=== PATIENT | male | born 1965 | race Caucasian/White ===

== ENCOUNTER 2018-06-04 18:30 | Inpatient (IN) | payer MEDICAID ==
[~2018-06-04] VITALS: Ht 175.3 cm; Wt 71.7 kg
[~2018-06-04 18:30] MED LIST: CEPH250C16
[2018-06-04 19:07] VITALS: BP 146/78
--- NOTE | 2018-06-04 19:07 | NUR ---
PT AMBULATORY TO ER LOBBY W/ STEADY GAIT IN STABLE CONDITION.
[2018-06-04 21:56] LABS: BASOPHILS % (AUTO) 0.4 % (0.0-2.0); EOSINOPHILS # (AUTO) 0.3 K/uL (0-0.4); EOSINOPHILS % (AUTO) 3.6 % (0.0-4.0); HEMOGLOBIN 11.8 g/dL (12.0-18.0); LYMPHOCYTES # (AUTO) 1.6 K/uL (2.0-11.5); LYMPHOCYTES % (AUTO) 19.4 % (20.5-51.1); MEAN CORPUSCULAR HEMOGLOBIN 35 pg (27-31); MEAN CORPUSCULAR HGB CONC 34 g/dL (33-37); MONOCYTES # (AUTO) 0.7 K/uL (0.8-1.0); MONOCYTES % (AUTO) 9.1 % (1.7-9.3); NEUTROPHILS # (AUTO) 5.5 K/uL (1.8-7.7); NEUTROPHILS % (AUTO) 67.5 % (42.2-75.2); PLATELET COUNT (AUTO) 84 K/uL (140-450); RED BLOOD CELL COUNT(AUTO) 3.37 MIL/uL (4.20-6.10); RED CELL DISTRIBUTION WIDTH 15.5 % (11.6-13.7); WHITE BLOOD COUNT (AUTO) 8.1 K/uL (4.8-10.8)
[2018-06-04 22:19] LABS: ANION GAP 10.9 (8-16); CARBON DIOXIDE 24.6 mmol/L (21-32); CREATININE 0.9 mg/dL (0.7-1.3); POTASSIUM 4.5 mmol/L (3.5-5.1)
[2018-06-04 22:25] LABS: TOTAL BILIRUBIN 3.4 mg/dL (0.0-1.0)
--- NOTE | 2018-06-04 22:29 | NUR ---
PT AMBULATED TO BED 7
--- NOTE | 2018-06-04 22:38 | NUR ---
PT PRESENTS TO ED WITH C/O ABD PAIN- DENIES N/V/D. OBVIOUS HERNIA NOTED TO UMBILICAL AREA PER PT IT HAS BEEN THERE FOR 20 YEARS WITH CONTINUED GROWTH. ABD IS ROUND DENIES PAIN UPON PALPATION. PT PLACED INTO BED, PENDING MD TABARES. PMH--LIVER CHIROSIS, HERNIA
[2018-06-04 23:44] LABS: APPEARANCE,URINE CLEAR (CLEAR); COLOR,URINE YELLOW (YELLOW)
[2018-06-04 23:45] LABS: BILIRUBIN,URINE NEGATIVE (NEGATIVE); BLOOD, URINE 3+ (NEGATIVE); UGLUCOSE NEGATIVE (NEGATIVE)
[2018-06-04 23:46] LABS: LEUKOCYTE ESTERASE ,URINE NEGATIVE (NEGATIVE); NITRITE, URINE NEGATIVE (NEGATIVE); RBC,URINE TOO NUMEROUS TO COUN /HPF (0-5); WBC,URINE 0-5 (RARE) /HPF (0-5)
[2018-06-05] MEDS ORDERED: NACL 0.9% 1,000 ML IV ONE (00:55)
[2018-06-05] MEDS ORDERED: MORPHINE SULFATE 4 MG/ML SYR IVP ONE (00:55)
[2018-06-05] MEDS ORDERED: NACL 0.9% 1,000 ML IV SCH (01:14)
[2018-06-05] MEDS ORDERED: MORPHINE SULFATE 2 MG/ML SYR IVP PRN (01:15)
[2018-06-05] MEDS ORDERED: HYDROcodone/APAP 5/325 MG 1 TAB TAB PO PRN (01:15)
[2018-06-05] MEDS ORDERED: ACETAMINOPHEN 325 MG TAB PO PRN (01:15)
[2018-06-05] MEDS ORDERED: DOCUSATE SODIUM 100 MG GELCAP PO PRN (01:15)
[2018-06-05] MEDS ORDERED: MORPHINE SULFATE 4 MG/ML SYR ONE (01:35)
[2018-06-05 01:41] LABS: PROTHROMBIN TIME 13.4 secs (10.8-13.4)
[2018-06-05 01:44] LABS: BARBITURATE, URINE NEG. ng/ml (NEG <=200); BENZODIAZEPINE, URINE NEG. ng/mL (NEG <=200); CANNABINOID, URINE NEG. ng/mL (NEG <=50); COCAINE, URINE NEG. ng/mL (NEG <=300); OPIATE, URINE NEG. ng/mL (NEG <=2000); PHENCYCLIDINE SCREEN,URINE NEG. ng/mL (NEG <=25)
--- NOTE | 2018-06-05 01:55 | NUR ---
RECEIVED FROM ER PER CARMINA AWAKE AND ALERT. NOSE BLEEDING A LITTLE BIT FROM NGT INSERTION. NO NGT IN PLACE RT BLEEDING. ACCOMPANIED BY DAUGHTER JOSS . IVF SITE TO LAC # 20. CARE PLANS FOR THE NIGHT DISCUSSED WITH THEM. CALL LIGHT WITH IN REACH. ORIENTED TO ROOM AND BED. RAPID RESPONSE DISCUSSED WITH THEM. ON ROOM AIR 100 %. SKIN INTACT. ROM X 4.
--- NOTE | 2018-06-05 01:55 | NUR ---
Patient will be admitted to care of DR GIVENS. Admited to MED/SURG. Will go to room 111-A. Belongings list completed. Report to SHANE POLANCO.
[2018-06-05 02:04] LABS: AMYLASE 77 U/L (25-115); CHOL/HDL RATIO 3.2 (1-4.5); HDL CHOLESTEROL 65 mg/dL (40-60); LDL (CALC) 128 mg/dL (60-100); MAGNESIUM 1.9 mg/dL (1.8-2.4); PHOSPHORUS 4.2 mg/dL (2.5-4.9); TRIGLYCERIDES 80 mg/dL (30-150)
[2018-06-05] MEDS: DEXT 5% / NACL 0.45% 1,000 ML IV SCH ×3 (02:56→19:09)
[2018-06-05] MEDS ORDERED: HYDR25CA1 PO (03:03)
[2018-06-05] MEDS ORDERED: SPIR25TA PO (03:03)
[2018-06-05] MEDS ORDERED: TRAM50TA1 PO (03:03)
[2018-06-05] MEDS ORDERED: FURO-570 PO (03:03)
[2018-06-05] MEDS ORDERED: LACT10SO1 PO (03:03)
[2018-06-05] MEDS ORDERED: cefTRIAXone 1,000 MG VIAL ONE (03:07)
[2018-06-05] MEDS ORDERED: SENN-74 PO (03:13)
[2018-06-05 03:20] VITALS: BP 139/80
[2018-06-05] MEDS: ONDANSETRON 4 MG/2 ML VIAL IM/IVP PRN ×2 (03:24→19:06)
--- NOTE | 2018-06-05 03:26 | NUR ---
MEDICATED WITH ZOFRAN IVP RT NAUSEATED AND FEELS LIKE VOMITING. WENT BACK TO SLEEP AFTER MEDICATION. CALL LIGHT WITH IN REACH.
--- NOTE | 2018-06-05 07:24 | NUR ---
ENDORSED TO THE NEXT RN FOR CONTINUITY OF CARE. NO COMPLAINTS DONE. SLEEPING. WAKES UP EASILY WHEN NAME CALLED.
--- NOTE | 2018-06-05 07:25 | NUR ---
RECEIVED BEDSIDE REPORT FROM DESIGN TECHNOLOGY PROFESSOR NURSE. PATIENT IS SLEEPING. NO SIGNS OF DISTRESS ON RA. SKIN IS INTACT. PATIENT IS AMBULATORY. GAIT IS STEADY. PATIENT IS CONTINENT. NPO SIGNS POSTED FOR SBO. MED SURGE PATIENT. L AC 20G INFUSING D5 1/2NS AT 100. CLEAN, DRY AND INTACT. BED IN LOW POSITION. CALL LIGHT WITHIN REACH. WILL CONTINUE TO MONITOR THE PATIENT
--- NOTE | 2018-06-05 07:57 | NUR ---
PATIENT HAS BEEN SCREENED AND CATEGORIZED MODERATE NUTRITION RISK. PATIENT WILL BE SEEN WITHIN 3-5 DAYS OF ADMISSION. 06/07/18RE[address]
[2018-06-05 08:00] VITALS: BP 123/74
[2018-06-05] MEDS ORDERED: hydrOXYzine PAMOATE 25 MG CAP PO SCH (09:00)
--- NOTE | 2018-06-05 09:25 | NUR ---
ATTEMPTED NGT. PATIENT VOMITED SOME BLOOD AND BLEEDING OCCURRED FROM NOSTRIL. DR ARCE SAID I CAN STOP AND DR LO WILL DO IT LATER.
[2018-06-05] MEDS: FUROSEMIDE 40 MG TAB PO SCH (11:04)
[2018-06-05] MEDS: SENNA 8.6 MG TAB PO SCH ×2 (11:04→20:50)
[2018-06-05] MEDS: LACTOBACILLUS RHAMNOSUS GG 1 EACH CAP PO SCH (11:04)
[2018-06-05] MEDS: SPIRONOLACTONE 25 MG TAB PO SCH ×2 (11:05→20:51)
[2018-06-05] MEDS: LACTULOSE 20 GM/30 ML UDC PO SCH ×2 (11:15→20:50)
[2018-06-05] MEDS ORDERED: hydrOXYzine HCL 25 MG TAB PO SCH (11:30)
--- NOTE | 2018-06-05 11:30 | NUR ---
ADMINISTERED MEDS. DR FRANCIS SAID OK TO GIVE LACTULOSE AND SENNA. ADMINISTERED ALL OTHER MEDS. PATIENT TOOK A FEW SIPS OF WATER, PATIENT TOLERATED WELL. CHRISTIE BOWERS. IV IS CLEAN, DRY AND INTACT. WILL CONTINUE TO MONITOR THE PATIENT
--- NOTE | 2018-06-05 12:29 | NUR ---
PATIENT IS SLEEPING. NO SIGNS OF DISTRESS. WILL CONTINUE TO MONITOR. DAUGHTER AT BEDSIDE.
--- NOTE | 2018-06-05 13:46 | NUR ---
patient ambulated to the restroom, gait steady. daughter at bedside. will continue to monitor the patient
--- NOTE | 2018-06-05 14:19 | NUR ---
administered new bag on fluids, D5 1/2NS AT 100. IV IS CLEAN, DRY AND INTACT
--- NOTE | 2018-06-05 15:02 | NUR ---
PATIENT IS SLEEPING. NO SIGNS OF DISTRESS. WILL CONTINUE TO MONITOR
--- NOTE | 2018-06-05 15:29 | NUR ---
PATIENT PICKED UP BY OR NURSE. PATIENT LEFT IN STABLE CONDITION
[2018-06-05] MEDS ORDERED: DESFLURANE 240 ML BTL INH ONE (16:24)
[2018-06-05] MEDS ORDERED: ROCURONIUM 50 MG/5 ML VIAL IV ONE (16:24)
[2018-06-05] MEDS ORDERED: ONDANSETRON 4 MG/2 ML VIAL ONE (16:24)
[2018-06-05] MEDS ORDERED: DEXAMETHASONE 4 MG/ML VIAL ONE (16:24)
[2018-06-05] MEDS ORDERED: SUCCINYLCHOLINE CHLORIDE 200 MG/10 ML VIAL IVP ONE (16:24)
[2018-06-05] MEDS ORDERED: PROPOFOL 200 MG/20 ML VIAL IV ONE (16:24)
[2018-06-05] MEDS ORDERED: ceFAZolin 1,000 MG VIAL ONE (16:29)
[2018-06-05] MEDS ORDERED: fentaNYL 0.05 MG/ML VIAL ONE (16:32)
[2018-06-05] MEDS: BUPIVACAINE-MPF 0.25% 30 ML VIAL INJ ONE ×2 (16:58→18:23)
--- NOTE | 2018-06-05 18:00 | NUR ---
patient going to icu, dr john is aware. dr joyce wants patient in icu for close monitoring d/t surgical incision being deep and the probability of patient being in severe pain. gave bedside report to icu nurse. patient endorsed. all belongings sent w family.
--- NOTE | 2018-06-05 18:30 | NUR ---
PT RECEIVED FROM OR S/P HERNIA REPAIR WITH MESH VIA BED. PLACED PT ON MONITOR. HR 85, BP 134/88, RR 14 SPO2 97%. PT A/O X4. ABLE TO MAKE NEEDS KNOWN. IN ROOM AIR SATURATING 97%. DRESSING DRY AND INTACT. ON PEDRO DRAINAGE. LUNGS COARSE. ABDOMEN FIRM, TENDER. ACTIVE BOWEL SOUND. LEFT 20 G. SALINE LOCK. FLUSHED, INTACT LINE. RIGHT FOREARM 18G. INTACT LINE. FLUSHED. ON HEBERT CATH DRAINING CLEAR URINE IN BAG. DENIES PAIN, NAUSEA AT THIS TIME. KEPT HOB ELEVATED. BED IN LOW POSITION LOCKED. WILL CONTINUE TO MONITOR.
[2018-06-05 18:35] VITALS: BP 134/88
[2018-06-05] MEDS ORDERED: ONDANSETRON 4 MG/2 ML VIAL IVP PRN (18:40)
[2018-06-05] MEDS ORDERED: HYDROmorphone 1 MG/ML AMP IVP PRN (18:40)
[2018-06-05 18:50] VITALS: BP 137/87
[2018-06-05 19:05] VITALS: BP 133/86
--- NOTE | 2018-06-05 19:11 | NUR ---
Pt. c/o nausea and pain at surgical site. Administered medicines as per ordered.
--- NOTE | 2018-06-05 19:15 | NUR ---
RECEIVED REPORT FROM AM SHIFT. PT A0 X 4. FOLLOWS SIMPLE COMMANDS. ABLE TO MAKE NEEDS KNOWN. ON ROOM AIR. LUNG SOUNDS CLEAR BILAT. SR ON MONITOR. PT NPO. S/P SBO SURGERY. SHYANNE AND ABD DRESSING IN PLACE. PEDRO DRAIN TO ABD NOTED. F/C IN PLACE. CLEAR YELLOW URINE. IV SITE TO L AC 20 G AND R FA 18 G. IV SITE PATENT. BED IN LOWEST POSITION. CALL LIGHT WITHIN REACH. FAMILY AT BEDSIDE. WILL CONTINUE TO MONITOR.
--- NOTE | 2018-06-05 19:30 | NUR ---
REPORT GIVEN TO SEED AND FERTILIZER SPECIALIST RN FOR CONTINUITY OF CARE.
--- NOTE | 2018-06-05 20:00 | NUR ---
ADMINISTERED 325 ML 1 UNIT PLATELETS AT THIS TIME.
--- NOTE | 2018-06-05 20:15 | NUR ---
PLATELETS INFUSING WELL. NO ADVERSE REACTIONS NOTED.
--- NOTE | 2018-06-05 20:15 | NUR ---
PT REFUSED NGT PLACEMENT. NO SIGNS OF ACUTE DISTRESS AT THIS TIME.
[2018-06-05] MEDS: hydrOXYzine HCL 25 MG TAB PO SCH (20:50)
--- NOTE | 2018-06-05 20:51 | NUR ---
PT STILL REFUSED NGT PLACEMENT. DR FOSTER MADE AWARE. OK TO START MEDS IN AM. WILL CONTINUE TO MONITOR.
--- NOTE | 2018-06-05 21:25 | NUR ---
RT AT BEDSIDE AT THIS TIME.
--- NOTE | 2018-06-05 21:30 | NUR ---
PATIENT SLEEPING, INCENTIVE SPIROMETER LEFT AT BEDSIDE
[2018-06-05 22:00] VITALS: BP 109/69
--- NOTE | 2018-06-05 22:33 | NUR ---
PLATELET INFUSION COMPLETE. NO ADVERSE REACTIONS NOTED.
--- NOTE | 2018-06-05 22:49 | NUR ---
PT REFUSES REPOSITIONING ASSISTANCE. ENCOURAGED SELF REPOSITIONING. EXPLAINED RISK VS. BENEFITS. PT STILL REFUSED.
[2018-06-06] VITALS (7 sets, daily range): BP systolic 99–125; BP diastolic 59–77
--- NOTE | 2018-06-06 00:10 | NUR ---
PT RESTING QUIETLY AT THIS TIME. NO SIGNS OF ACUTE DISTRESS NOTED.
--- NOTE | 2018-06-06 03:00 | NUR ---
STILL AWAKE, CONVERSING WITH PATIENT IN BED-A. ADVISED TO GO TO SLEEP.
--- NOTE | 2018-06-06 04:10 | NUR ---
ABD DRESSING CLEAN AND DRY. PEDRO DRAIN OUTPUT 30ML SANGUINOUS FLUID NOTED.
--- NOTE | 2018-06-06 04:19 | NUR ---
PT REFUSES REPOSITIONING. REQUEST TO SLEEP AND NOT BE BOTHERED. EXPLAINED RISK VS. BENEFITS. PT STILL REFUSED. WILL CONTINUE TO MONITOR.
--- NOTE | 2018-06-06 05:10 | NUR ---
RT AT BEDSIDE AT THIS TIME. PT WAS ABLE TO SUCCESSFULLY USE INCENTIVE SPIROMETER. ENCOURAGED TO USE WHEN AWAKE
--- NOTE | 2018-06-06 05:15 | NUR ---
LAB AT BEDSIDE AT THIS TIME FOR AM BLOOD DRAWS
[2018-06-06 06:02] LABS: CREATININE 0.9 mg/dL (0.7-1.3)
[2018-06-06 06:03] LABS: BASOPHILS % (AUTO) 0.2 % (0.0-2.0); EOSINOPHILS % (AUTO) 0.2 % (0.0-4.0); HEMATOCRIT 30.9 % (36-52); HEMOGLOBIN 10.7 g/dL (12.0-18.0); LYMPHOCYTES # (AUTO) 0.7 K/uL (2.0-11.5); LYMPHOCYTES % (AUTO) 11.3 % (20.5-51.1); MEAN CORPUSCULAR HEMOGLOBIN 35 pg (27-31); MEAN CORPUSCULAR HGB CONC 34 g/dL (33-37); MEAN CORPUSCULAR VOLUME 102.3 fL (80-94); MONOCYTES # (AUTO) 0.3 K/uL (0.8-1.0); MONOCYTES % (AUTO) 4.3 % (1.7-9.3); NEUTROPHILS # (AUTO) 5.5 K/uL (1.8-7.7); PLATELET COUNT (AUTO) 84 K/uL (140-450); RED BLOOD CELL COUNT(AUTO) 3.02 MIL/uL (4.20-6.10); RED CELL DISTRIBUTION WIDTH 14.8 % (11.6-13.7); WHITE BLOOD COUNT (AUTO) 6.5 K/uL (4.8-10.8)
[2018-06-06 06:07] LABS: MAGNESIUM 1.4 mg/dL (1.8-2.4); PHOSPHORUS 4.3 mg/dL (2.5-4.9)
--- NOTE | 2018-06-06 06:08 | NUR ---
PT REFUSED AM CARE. EXPLAINED RISK VS. BENEFITS. STILL REFUSED.
[2018-06-06 06:16] LABS: ANION GAP 9.1 (8-16); CARBON DIOXIDE 24.1 mmol/L (21-32); POTASSIUM 4.2 mmol/L (3.5-5.1)
[2018-06-06 06:21] LABS: T4 (THYROXINE) 6.6 ug/dL (4.5-12.0)
[2018-06-06] MEDS ORDERED: HYDROcodone/APAP 7.5/325 MG 1 TAB PO PRN (06:55)
[2018-06-06] MEDS ORDERED: SIMETHICONE 80 MG TAB.CHEW PO PRN (06:55)
--- NOTE | 2018-06-06 07:17 | NUR ---
ENDORSED CARE TO INCOMING SHIFT FOR CONTINUITY OF CARE. NO SIGNS OF ACUTE DISTRESS AT THIS TIME. BED IN LOWEST POSITION. CALL LIGHT WITHIN REACH.
[2018-06-06] MEDS ORDERED: PROBIOTIC SCREEN 1 EA MISC MC PRN (07:20)
--- NOTE | 2018-06-06 08:00 | NUR ---
PATIENT AWAKE,ALERT, ORIENTED TO PERSON, TIME, PLACE SITUATION. ON ROOM AIR SO2 97%, SINUS RHYTHM ON MONITOR HR 80 BPM, SOFT ABDOMEN, NORMAL BOWEL SOUNDS, POST SURGICAL ABDOMINAL WOUND WITH CLEAN DRY INTACT DRESSING 1 PEDRO TO BULB SUCTION MINIMAL BLOODY OUTPUT NOTED, WITH HEBERT CATHETER, WITH 2 PERIPHERAL LINES: RIGHT FOREARM GAUGE 18 WITH D5HALF SALINE INFUSING 100ML/HR., LEFT ANTECUBITAL GAUGE 20 SALINE LOCKED-SITES ASYMPTOMATIC, NO OTHER WOUNDS. CALL SMYTH WITHIN REACH
--- NOTE | 2018-06-06 08:05 | NUR ---
PATIENT ABLE TO EAT BREAKFAST INDEPENDENTLY, FINISHED 100% OF MEAL SERVED
--- NOTE | 2018-06-06 08:42 | NUR ---
DR JONES MADE AWARE OF PATIENT'S MAG 1.4 AND NA 134 LEVELS. WILL FOLLOW UP WITH ORDERS.
[2018-06-06] MEDS: LACTOBACILLUS RHAMNOSUS GG 1 EACH CAP PO SCH (09:05)
[2018-06-06] MEDS: hydrOXYzine HCL 25 MG TAB PO SCH ×2 (09:06→20:32)
[2018-06-06] MEDS: SPIRONOLACTONE 25 MG TAB PO SCH ×2 (09:06→20:31)
[2018-06-06] MEDS: DOCUSATE SODIUM 100 MG GELCAP PO SCH ×2 (09:06→20:30)
[2018-06-06] MEDS: FUROSEMIDE 40 MG TAB PO SCH (09:07)
[2018-06-06] MEDS: SENNA 8.6 MG TAB PO SCH ×2 (09:07→20:31)
[2018-06-06] MEDS: LACTULOSE 20 GM/30 ML UDC PO SCH ×2 (09:33→20:33)
[2018-06-06] MEDS ORDERED: MAG SULF 2000 MG/WATER PREMIX 100 ML IV SCH (10:00)
--- NOTE | 2018-06-06 11:22 | NUR ---
DR. FRANCIS AWARE OF PATIENT'S PLATELET LEVEL, SODIUM TODAY. RN RECOMMENDED TO CHANGE CURRENT IV FLUID WHICH IS D5 HALF NORMAL SALINE
--- NOTE | 2018-06-06 11:30 | NUR ---
PATIENT ATE HIS LUNCH INDEPENDENTLY, FINISHED 75% OF MEAL TRAY SERVED. HEAD OF BED UP 45 DEGREES AT THIS TIME
[2018-06-06] MEDS: NACL 0.9% 1,000 ML IV SCH (13:18)
--- NOTE | 2018-06-06 16:00 | NUR ---
AFTER VERIFYING ORDER AND INFORMING PATIENT. HEBERT CATHETER WAS REMOVED PER PROTOCOL WITHOUT INCIDENCE. PATIENT HAD A TOTAL OF 1800 URINE OUTPUT THIS SHIFT
--- NOTE | 2018-06-06 17:00 | NUR ---
PATIENT TRANSFERRED TO TELEMETRY VIA WHEELCHAIR. PATIENT ALERT ORIENTED NO COMPLAINTS OF PAIN, SINUS RHYTHM, LATEST BP 125/77. ABDOMINAL DRESSING CLEAN DRY AND INTACT PEDRO DRAIN, 2 PERIPHERAL LINES PATENT IN SITU AND DATED
--- NOTE | 2018-06-06 17:08 | NUR ---
BEDSIDE REPORT GIVEN TO AND PATIENT CHECKED BY RECEIVING METAL BENCH PATTERNMAKER. BELONGINGS WITH PATIENT
--- NOTE | 2018-06-06 17:10 | NUR ---
Pt arrived from ICU to room 111B via wheelchair, accompanied by ICU nurse. Received report from Cynthia ICU nurse. Pt able to amb 10ft from wheelchair to bed with handheld assist. Pt has no c/o pain at this time, no signs of distress. Left ac IV intact with ongoing NS @ 70ml/hr. Right forearm IV saline lock intact & asymptomatic. Abd dressing clean, dry, & intact. Armando in place & draining min serosanguineous drainage. Pt oriented to room & unit, verbalized & return demonstrated understanding. Call light within reach.
--- NOTE | 2018-06-06 19:12 | NUR ---
Report given to pm nurse Claudia.
--- NOTE | 2018-06-06 19:13 | NUR ---
RECD. FOR CONTINUITY OF CARE, RESTING IN BED, AWAKE, A/OX4. RESPIRATION EVEN AND UNLABORED. IV OF NS AT 70 ML/HR INFUSING, LEFT AC G20. INCISION IN THE LOWER ABDOMEN, COVERED WITH DRESSING DRY AND INTACT, WITH 1 PEDRO DRAINING SANGUINOUS FLUID, MINIMAL AMOUNT. PLAN OF CARE FOR THE SHIFT DISCUSSED. VERBALIZED UNDERSTANDING. PAIN IN THE SITE 05/10, STATED TOLERABLE. STATED HE AMBULATED IN THE HALLWAY, TOLERATING DIET. AND VOIDING WELL. NO BM YET. WILL MEDICATE ORDERED.
[2018-06-06] MEDS ORDERED: INFLUENZA VIRUS VACCINE QUAD 0.5 ML SYR IMVAC PRN (22:30)
[2018-06-07] VITALS: BP 123/62
[2018-06-07] MEDS: NACL 0.9% 1,000 ML IV SCH (03:58)
--- NOTE | 2018-06-07 05:30 | NUR ---
ASSISTED TO BR, ABLE TO HAVE A SMALL BM. BACK TO BED, SAFETY MAINTAINED.
--- NOTE | 2018-06-07 07:20 | NUR ---
ENDORSED TO AM SHIFT NURSE FOR CONTINUITY OF CARE.
--- NOTE | 2018-06-07 07:21 | NUR ---
RECEIVED REPORT FROM SEAFOOD HARVESTER NURSE FOR CONTINUITY OF CARE. PT IN STABLE CONDITION. IV INTACT AND PATENT. RESPIRATIONS EVEN AND UNLABORED. SAFETY MEASURES IN PLACE. CALL LIGHT AT BEDSIDE. BED IN LOW POSITION. WILL CONTINUE TO MONITOR.
[2018-06-07 07:26] LABS: BASOPHILS % (AUTO) 0.2 % (0.0-2.0); EOSINOPHILS # (AUTO) 0.1 K/uL (0-0.4); EOSINOPHILS % (AUTO) 1.1 % (0.0-4.0); HEMATOCRIT 32.4 % (36-52); HEMOGLOBIN 10.8 g/dL (12.0-18.0); LYMPHOCYTES # (AUTO) 1.5 K/uL (2.0-11.5); LYMPHOCYTES % (AUTO) 13.4 % (20.5-51.1); MEAN CORPUSCULAR HEMOGLOBIN 35 pg (27-31); MEAN CORPUSCULAR HGB CONC 34 g/dL (33-37); MEAN CORPUSCULAR VOLUME 103.3 fL (80-94); MONOCYTES # (AUTO) 1.4 K/uL (0.8-1.0); MONOCYTES % (AUTO) 12.2 % (1.7-9.3); NEUTROPHILS # (AUTO) 8.2 K/uL (1.8-7.7); NEUTROPHILS % (AUTO) 73.1 % (42.2-75.2); PLATELET COUNT (AUTO) 92 K/uL (140-450); RED BLOOD CELL COUNT(AUTO) 3.13 MIL/uL (4.20-6.10); RED CELL DISTRIBUTION WIDTH 15.1 % (11.6-13.7); WHITE BLOOD COUNT (AUTO) 11.2 K/uL (4.8-10.8)
[2018-06-07 08:00] VITALS: BP 124/71
[2018-06-07 08:10] LABS: ANION GAP 8.6 (8-16); CARBON DIOXIDE 24.4 mmol/L (21-32); CREATININE 0.8 mg/dL (0.7-1.3)
[2018-06-07 08:25] LABS: MAGNESIUM 1.7 mg/dL (1.8-2.4); PHOSPHORUS 3.7 mg/dL (2.5-4.9)
[2018-06-07] MEDS ORDERED: DOCU-299 PO (08:37)
[2018-06-07] MEDS ORDERED: ACET-9529 PO (08:37)
[2018-06-07] MEDS ORDERED: LACT10CA PO (08:37)
[2018-06-07] MEDS ORDERED: SULF-58 PO (08:42)
[2018-06-07] MEDS ORDERED: MAGN241.1 PO (08:47)
[2018-06-07] MEDS ORDERED: MAG SULF 2000 MG/WATER PREMIX 50 ML IV SCH (09:00)
[2018-06-07] MEDS: LACTULOSE 20 GM/30 ML UDC PO SCH (09:26)
[2018-06-07] MEDS: hydrOXYzine HCL 25 MG TAB PO SCH (09:27)
[2018-06-07] MEDS: DOCUSATE SODIUM 100 MG GELCAP PO SCH (09:27)
[2018-06-07] MEDS: SPIRONOLACTONE 25 MG TAB PO SCH (09:28)
[2018-06-07] MEDS: LACTOBACILLUS RHAMNOSUS GG 1 EACH CAP PO SCH (09:28)
[2018-06-07] MEDS: FUROSEMIDE 40 MG TAB PO SCH (09:28)
[2018-06-07] MEDS: SENNA 8.6 MG TAB PO SCH (09:28)
--- NOTE | 2018-06-07 09:30 | NUR ---
ROCEPHIN STARTED AT THIS TIME. PT IN STABLE CONDITION. WILL CONTINUE TO MONITOR.
--- NOTE | 2018-06-07 13:00 | NUR ---
PICTURES TAKEN OF S/P ABDOMINAL WOUND FROM HERNIA REPAIR, DRESSING CHANGED. PT TOLERATED WELL. WILL CONTINUE TO MONITOR.
--- NOTE | 2018-06-07 15:07 | NUR ---
GAVE DISCHARGE INSTRUCTIONS AND PHARMACY PRESCRIPTIONS. ALL QUESTIONS ANSWERED AT THIS TIME. PT VERBALIZED UNDERSTANDING OF INSTRUCTIONS. REMOVED IV, LUMEN INTACT. FLU VACCINE GIVEN. PT TOLERATED WELL. REMOVED ID BAND. PT REFUSED WHEELCHAIR. ESCORTED PT TO LOBBY WHERE FAMILY MEMBER WAS WAITING WITH CAR. PT IN STABLE CONDITION.
== END 2018-06-07 15:07 | disposition home or self-care (01) | DRG 228 ==
LOC: MED 18:30 → MTU 06-05 01:09 → MIC 06-05 18:30 → MTU 06-06 17:00
PROVIDERS: ADMIT General Practice; ATTEND General Practice
PROC: 30233N1 Transfusion of Nonautologous Red Blood Cells into Peripheral Vein, Percutaneous Approach (ICD-10-PCS; 2018-06-05)
PROC: 0WUF0JZ Supplement Abdominal Wall with Synthetic Substitute, Open Approach (ICD-10-PCS; principal; 2018-06-05 16:00)
PROC: 3E02340 Introduction of Influenza Vaccine into Muscle, Percutaneous Approach (ICD-10-PCS; 2018-06-06)
DX: K42.0 Umbilical hernia with obstruction, without gangrene (principal); K56.609 Unspecified intestinal obstruction, unspecified as to partial versus complete obstruction; E44.0 Moderate protein-calorie malnutrition; D69.6 Thrombocytopenia, unspecified; F20.9 Schizophrenia, unspecified; E87.1 Hypo-osmolality and hyponatremia; E83.42 Hypomagnesemia; N18.6 End stage renal disease; N30.90 Cystitis, unspecified without hematuria; K70.30 Alcoholic cirrhosis of liver without ascites; Z68.23 Body mass index [BMI] 23.0-23.9, adult; E78.5 Hyperlipidemia, unspecified; D64.9 Anemia, unspecified; F10.10 Alcohol abuse, uncomplicated; K57.90 Diverticulosis of intestine, part unspecified, without perforation or abscess without bleeding; Z23 Encounter for immunization
CPT/HCPCS: 36415; 71045; 80048; 80053; 80305; 81001; 82140; 82150; 82948; 83036; 83605; 83690; 83735; 83880; 84100; 84436; 84443; 84484; 85025; 85610; 85730; 86886; 86900; 86901; 87081; 88302; 90658; 93005; 96374; 99285; G0482; J0330; J0690; J0696; J1100; J2270; J2405; J2704; J3010; J3475; J3490; J7030; J7060; P9035; Q0092; Q0177

== ENCOUNTER 2018-07-03 19:30 | Emergency (ER) | payer MEDICAID ==
[~2018-07-03] VITALS: Ht 175.3 cm; Wt 106.6 kg
[~2018-07-03 19:30] MED LIST changes: +ACET-9529 PO; -CEPH250C16; +DOCU-299 PO; +FURO-570 PO; +HYDR25CA1 PO; +LACT10CA PO; +LACT10SO1 PO; +MAGN241.1 PO; +SENN-74 PO; +SPIR25TA PO; +SULF-58 PO; +TRAM50TA1 PO
[2018-07-03 19:39] VITALS: BP 111/56
--- NOTE | 2018-07-03 19:45 | NUR ---
PT PROVIDING URINE, THEN AMBULATING TO BED 1 WITH VSS. Addendum: 07/03/18 at 1946 by Onzo PT PROVIDING URINE, THEN AMBULATING TO CHAIR E WITH VSS. Addendum: 07/03/18 at 1947 by Onzo COLLECTED SPECIMEN FOR INFLUENZA. PT AMBUALTED TO CHAIR E WITH VSS.
--- NOTE | 2018-07-03 19:50 | NUR ---
CAME IN WITH C/O PRODUCTIVE COUGH, BODY ACHES, HEADACHE AND N/V X 1 DAY. LUNG SOUNDS CBTA, RESPIRATIONS EVEN AND UNLABORED, 98% RA. PT ALSO REPORTS FEVER AT HOME, CURRENT TEMP 100.2. COOLING MEASURES IMPLEMENTED. DENIES FURTHER N/V AT THIS TIME. PMH: CIRRHOSIS
--- NOTE | 2018-07-03 20:17 | NUR ---
NAHID SANDY WITH PT
[2018-07-03 21:00] VITALS: BP 116/54
--- NOTE | 2018-07-03 21:00 | NUR ---
Patient discharged with v/s stable. Written and verbal after care instructions given and explained. Patient alert, oriented and verbalized understanding of instructions. Ambulatory with steady gait. All questions addressed prior to discharge. ID band removed. Patient advised to follow up with PMD. Rx of TAMIFLU, MOTRIN, AND PROMETHAZINE DM given. Patient educated on indication of medication including possible reaction and side effects. Opportunity to ask questions provided and answered.
== END 2018-07-03 21:00 | disposition home or self-care (01) ==
LOC: MED 19:30
DX: J06.9 Acute upper respiratory infection, unspecified (principal); Z98.890 Other specified postprocedural states; Z79.2 Long term (current) use of antibiotics; Z79.891 Long term (current) use of opiate analgesic; Z79.899 Other long term (current) drug therapy
CPT/HCPCS: 87804; 99283